=== PATIENT | male | born 1995 | race African-American/Black ===

== ENCOUNTER 2018-01-24 06:35 | Emergency (ER) | payer SELFPAY ==
[2018-01-24] MEDS ORDERED: ONDANSETRON PF 4 MG/2 ML VIAL. IV (07:15)
[2018-01-24] MEDS: ONDANSETRON ODT 4 MG TAB.RAPDIS. PO (07:26)
[2018-01-24] MEDS: TETRACAINE 0.5% OPHTH SOLUTION 4ML BOTTLE. OD (07:27)
[2018-01-24] MEDS: HYDROcodone/APAP 5/325MG 1 TAB TABLET PO (07:27)
[2018-01-24] MEDS: FLUORESCEIN OPHTH TEST STRIP. OD (07:28)
== END 2018-01-24 08:40 | disposition home or self-care (01) ==
LOC: ER 06:35
DX: S00.211A Abrasion of right eyelid and periocular area, initial encounter (principal); S09.93XA Unspecified injury of face, initial encounter; J45.909 Unspecified asthma, uncomplicated; Z88.0 Allergy status to penicillin; W20.8XXA Other cause of strike by thrown, projected or falling object, initial encounter; Y93.89 Activity, other specified; Y99.8 Other external cause status; Y92.89 Other specified places as the place of occurrence of the external cause
CPT/HCPCS: 70450; 70486; 99284-25; Q0162

== ENCOUNTER 2018-03-19 08:51 | Emergency (ER) | payer SELFPAY ==
[~2018-03-19] VITALS: Ht 177.8 cm; Wt 78.0 kg
[~2018-03-19 08:51] MED LIST: HYDR-971 PO; METO10TA81 PO; POLY10DR OD; PRED50TA PO; PROAIR HFA8.5 GM INH
[2018-03-19 08:59] VITALS: BP 131/75
--- NOTE | 2018-03-19 09:19 | PHYS DOC ---
Past Medical History Past Medical History: Asthma Past Surgical History: Other Additional Past Surgical Histo: L SIDE RIB, THROAT Alcohol Use: None Drug Use: Marijuana Adult General Chief Complaint Chief Complaint: ANKLE PROBLEM HPI HPI Patient is a 22 year old male who presents with 20 out of 10 constant left lateral ankle pain described as sharp that has been going on since yesterday, patient states he jumped and landed wrong on the left ankle twisting it. Patient states his pain is worse on weight bearing. Review of Systems Review of Systems Constitutional: Denies fever or chills [] Musculoskeletal: Left ankle pain Integument: Denies rash or skin lesions [] Neurologic: Denies headache, focal weakness or sensory changes [] All other systems were reviewed and found to be within normal limits, except as documented in this note. Current Medications Current Medications Current Medications Medications (Trade) Dose Ordered Sig/Praveen Start Time Stop Time Status Last Admin Dose Admin Acetaminophen/ Hydrocodone Bitart (Lortab 5/325) 1 tab 1X ONCE 03/19/18 09:15 03/19/18 09:19 DC 03/19/18 09:30 1 TAB Ibuprofen (Motrin) 600 mg 1X ONCE 03/19/18 09:15 03/19/18 09:19 DC 03/19/18 09:30 600 MG Allergies Allergies Allergies Coded Allergies Type Severity Reaction Last Updated Verified Penicillins Allergy Intermediate 02/22/16 Yes Physical Exam Physical Exam Constitutional: Well developed, well nourished, no acute distress, non-toxic appearance. [] Skin: Warm, dry, no erythema, no rash. [] Back: No tenderness, no CVA tenderness. [] Extremities: Left ankle with mild soft tissue swelling on the lateral aspect of the ankle. Tenderness on palpation of the left lateral ankle. Full passive range of motion to the left ankle and foot. +2 left pedal pulse. Cap refill less than 2 seconds the left toes. Moderate onychomycosis noted on his toenails Neurologic: Alert and oriented X 3, normal motor function, normal sensory function, no focal deficits noted. [] Psychologic: Affect normal, judgement normal, mood normal. [] Current Patient Data Vital Signs Vital Signs Date Time Temp Pulse Resp B/P (MAP) Pulse Ox O2 Delivery O2 Flow Rate FiO2 03/19/18 09:30 16 Room Air 03/19/18 08:59 98.0 112 131/75 (93) 99 98.0 EKG EKG [] Radiology/Procedures Radiology/Procedures []PROCEDURE: ANKLE RIGHT 3V Examination: ANKLE RIGHT 3V History: PATIENT ROLLED ANKLE PLAYING BASKETBALL LAST NIGHT. PAIN WITH SWELLING ON LATERAL ASPECT OF ANKLE. Comparison/Correlation: None Findings: Total 3 images of the left ankle were obtained. Soft tissue swelling about the lateral malleolus is present. Transverse fracture of the distal tip of the lateral malleolus is present. No significant displacement. Impression: Acute transverse fracture distal fibula lateral malleolus likely due to avulsion injury. Associated soft tissue swelling. Electronically signed by: Jaya Alfred MD (03/19/2018 9:40 AM) [facility] DICTATED and SIGNED BY: JAYA ALFRED MD DATE: 03/19/18938 Course & Med Decision Making Course & Med Decision Making Pertinent Labs and Imaging studies reviewed. (See chart for details) This is a 22-year-old male patient presenting to the ED today complaining of left ankle pain, he twisted the ankle yesterday. Left ankle x-rays interpreted by radiologist were noted for-Acute transverse fracture distal fibula lateral malleolus likely due to avulsion injury. Associated soft tissue swelling. Patient was placed in a stirrup and posterior leg splint by the construction technician, neurovascular exam done by me is normal, unless patient encouraged, provided orthopedic doctor to follow up with an outpatient. Dragon Disclaimer Dragon Disclaimer This electronic medical record was generated, in whole or in part, using a voice recognition dictation system. Departure Departure Impression: Primary Impression: Fibula fracture Disposition: 01 HOME, SELF-CARE Condition: STABLE Referrals: NO PCP (PCP) NOAH MARI MD call his office today and set up a follow up an appointment to be seen in the clinic Patient Instructions: Fibular Fracture with Rehab-SportsMed Additional Instructions: You were see in the ED and noted to have a left ankle fracture. Ice and elevate the extremity, contact the provided the doctor today and set up a follow-up appointment as outpatient. Scripts Hydrocodone/Apap 5-325 (NORCO 5-325 TABLET) 1 Each Tablet 1 TAB PO Q4-6HRS PRN for PAIN, #20 TAB Prov: BILLY AMAYA CONTENT DEVELOPER 03/19/18 Problem Qualifiers Primary Impression: Fibula fracture Encounter type: initial encounter Fibula location: proximal Fracture type: closed Fracture morphology: other fracture Laterality: left Qualified Codes: S82.832A - Other fracture of upper and lower end of left fibula, initial encounter for closed fracture BILLY AMAYA APRN Mar 19, 2018 09:19
[2018-03-19] MEDS: HYDROcodone/APAP 5/325MG 1 TAB TABLET PO ONE (09:30)
[2018-03-19] MEDS: IBUPROFEN 600 MG TABLET. PO ONE (09:30)
--- NOTE | 2018-03-19 09:44 | RAD ---
Examination: ANKLE RIGHT 3V History: PATIENT ROLLED ANKLE PLAYING BASKETBALL LAST NIGHT. PAIN WITH SWELLING ON LATERAL ASPECT OF ANKLE. Comparison/Correlation: None Findings: Total 3 images of the left ankle were obtained. Soft tissue swelling about the lateral malleolus is present. Transverse fracture of the distal tip of the lateral malleolus is present. No significant displacement. Impression: Acute transverse fracture distal fibula lateral malleolus likely due to avulsion injury. Associated soft tissue swelling. Electronically signed by: Jaya Jiménez MD (03/19/2018 9:40 AM) [facility]
[2018-03-19] MEDS ORDERED: HYDR-971 PO (10:22)
== END 2018-03-19 10:46 | disposition home or self-care (01) ==
LOC: ER 08:51
DX: S82.832A Other fracture of upper and lower end of left fibula, initial encounter for closed fracture (principal); J45.909 Unspecified asthma, uncomplicated; Z88.0 Allergy status to penicillin; X50.1XXA Overexertion from prolonged static or awkward postures, initial encounter; Y93.39 Activity, other involving climbing, rappelling and jumping off; Y92.89 Other specified places as the place of occurrence of the external cause; Y99.8 Other external cause status
CPT/HCPCS: 73610; 99284

== ENCOUNTER 2018-07-28 18:13 | Emergency (ER) | payer SELFPAY ==
[~2018-07-28] VITALS: Ht 172.7 cm; Wt 72.6 kg
[~2018-07-28 18:13] MED LIST changes: +ALBU2.5V8 INH; +HYDR-3164 PO; -HYDR-971 PO; -PROAIR HFA8.5 GM INH
[2018-07-28 19:18] VITALS: BP 146/86
[2018-07-28 20:12] LABS: BILIRUBIN,URINE NEGATIVE (NEG); CLARITY,URINE CLEAR; COLOR,URINE YELLOW; NITRITE,URINE NEGATIVE (NEG); PROTEIN,URINE NEGATIVE (NEG-TRACE)
[2018-07-28] MEDS ORDERED: cefTRIAXone IM 250 MG VIAL IM ONE (20:15)
[2018-07-28] MEDS ORDERED: AZITHROMYCIN 250 MG TABLET. PO ONE (20:15)
[2018-07-28 20:21] LABS: BACTERIA,URINE 0 /HPF (0-FEW); RBC,URINE 0 /HPF (0-2); SQUAMOUS EPITHELIAL CELL,UR OCC /LPF; WBC,URINE >40 /HPF (0-4)
[2018-07-28] MEDS ORDERED: CEPH-264 PO (20:38)
--- NOTE | 2018-07-28 20:38 | PHYS DOC ---
Past Medical History Past Medical History: Other Additional Past Medical Histor: MURMUR BABY, RESOLVED Past Surgical History: Other Additional Past Surgical Histo: TRACHEOTOMY Alcohol Use: None Drug Use: None Adult General Chief Complaint Chief Complaint: MALE UROGENITAL PROBLEMS HPI HPI 22 y/o male presents with report of 1 month history of difficulty starting urination. Denies fever/chills. Denies nausea, vomiting, or diarrhea. Denies rash. Review of Systems Review of Systems Constitutional: Denies fever or chills [] Eyes: Denies change in visual acuity, redness, or eye pain [] HENT: Denies nasal congestion or sore throat [] Respiratory: Denies cough or shortness of breath [] Cardiovascular: Denies chest pain or palpitations GI: Reports some upper abdominal pain, nausea, vomiting, or diarrhea [] : Reports dysuria; denies hematuria [] Musculoskeletal: Denies back pain or joint pain [] Integument: Denies rash or skin lesions [] Neurologic: Denies headache, focal weakness or sensory changes [] Complete systems were reviewed and found to be within normal limits, except as documented in this note. Current Medications Current Medications Current Medications Medications (Trade) Dose Ordered Sig/Praveen Start Time Stop Time Status Last Admin Dose Admin Azithromycin (Zithromax) 1,000 mg 1X ONCE 07/28/18 20:15 07/28/18 20:16 DC 07/28/18 20:20 1,000 MG Ceftriaxone Sodium (Rocephin Im) 250 mg 1X ONCE 07/28/18 20:15 07/28/18 20:16 DC 07/28/18 20:20 250 MG Allergies Allergies Allergies Coded Allergies Type Severity Reaction Last Updated Verified Penicillins Allergy Intermediate 02/22/16 Yes Physical Exam Physical Exam Constitutional: Well developed, well nourished, no acute distress, non-toxic appearance. [] HENT: Normocephalic, atraumatic, oropharynx moist Eyes: Conjunctiva normal, no discharge. [] Neck: Normal range of motion, no tenderness, supple Cardiovascular: Heart rate regular rhythm, no murmur [] Lungs & Thorax: Bilateral breath sounds clear to auscultation [] Abdomen: Soft, no tenderness : External genitalia normal, no meatal discharge or hemorrhage noted Skin: Warm, dry, no erythema Back: No tenderness, no CVA tenderness. [] Extremities: No tenderness, ROM intact, no edema. [] Neurologic: Alert and oriented X 3, no focal deficits noted. [] Psychologic: Affect normal, judgement normal, mood normal. [] Current Patient Data Vital Signs Lab Values Laboratory Tests Test 07/28/18 19:30 Urine Collection Type Unknown Urine Color Yellow Urine Clarity Clear Urine pH 8.0 Urine Specific [place] 1.020 Urine Protein Negative mg/dL (NEG-TRACE) Urine Glucose (UA) Negative mg/dL (NEG) Urine Ketones (Stick) Negative mg/dL (NEG) Urine Blood Negative (NEG) Urine Nitrite Negative (NEG) Urine Bilirubin Negative (NEG) Urine Urobilinogen Dipstick 1.0 mg/dL (0.2 mg/dL) Urine Leukocyte Esterase Moderate (NEG) Urine RBC 0 /HPF (0-2) Urine WBC >40 /HPF (0-4) Urine Squamous Epithelial Cells Occ /LPF Urine Bacteria 0 /HPF (0-FEW) Urine Mucus Mod /LPF Urine Chlamydia DNA (PCR) Positive (Negative) A Neisseria gonorrhoeae DNA (PCR) Positive (Negative) A Microbiology 07/28/18 Urine Culture - Final, Complete 07/28/18 Urine Culture Result 1 (JEYSON) - Final, Complete EKG EKG [] Radiology/Procedures Radiology/Procedures [] Course & Med Decision Making Course & Med Decision Making Pertinent Labs reviewed. (See chart for details) Patient presents with report of dysuria. Concern for possible STD. UA with si gns of infection. Chlamydia/Gonorrhea cultures obtained. Empiric antibiotics given. Rx for Keflex provided. Patient stable for discharge home with outpatient follow-up with PCP. Discussed findings and plan with patient, who acknowledges understanding and agreement. Dragon Disclaimer Dragon Disclaimer This electronic medical record was generated, in whole or in part, using a voice recognition dictation system. Departure Departure Impression: Primary Impression: Dysuria Additional Impressions: UTI (urinary tract infection) Concern about STD in male without diagnosis Disposition: 01 HOME, SELF-CARE Condition: STABLE Referrals: NO PCP (PCP) Patient Instructions: Sexually Transmitted Disease, [id number], Urinary Tract Infection, [id number] Scripts Cephalexin (KEFLEX) 500 Mg Capsule 500 MG PO TID for 7 Days, #21 CAP Prov: RADHA WALTON DO 07/28/18 Problem Qualifiers Additional Impressions: UTI (urinary tract infection) Urinary tract infection type: acute cystitis Hematuria presence: without hematuria Qualified Codes: N30.00 - Acute cystitis without hematuria RADHA WALTON DO Jul 28, 2018 20:38
== END 2018-07-28 20:59 | disposition home or self-care (01) ==
LOC: ER 18:13
DX: N30.00 Acute cystitis without hematuria (principal); Z20.2 Contact with and (suspected) exposure to infections with a predominantly sexual mode of transmission; Z88.0 Allergy status to penicillin; Z98.890 Other specified postprocedural states
CPT/HCPCS: 81001; 96372; 99283; J0696; Q0144; 87086; 87491; 87591